=== PATIENT | female | born 1970 | race Caucasian/White ===

== ENCOUNTER 2016-11-09 05:38 | Day surgery (SDC) | payer OTHER, SELFPAY ==
[~2016-11-09 05:38] MED LIST: ADVIL200 M1 PO; CELEXA20 M2 PO; CLARITIN10 M1 PO; MOBIC7.5 M2 PO; MULTIVITAMIN1 TAB PO; PERCOCET 5/3251 TAB PO; PROAIR HFA8.5 GM INH; TYLENOL EXTRA500 M1 PO; TYLENOL TA325 MG/TA2 PO; VENTOLIN HFA18 GM IH
[2016-11-10] MEDS ORDERED: PERCOCET 5-3251 EACH PO (00:40)
== END 2016-11-10 09:35 ==
LOC: WSU 05:38 → SHSB 05:41 → ORW 07:44 → PACU 09:16 → SHSB 09:54 → OBGE 16:50
PROC: 0TSD0ZZ Reposition Urethra, Open Approach (ICD-10-PCS; principal; 2016-11-09)
PROC: 0JQC0ZZ Repair Pelvic Region Subcutaneous Tissue and Fascia, Open Approach (ICD-10-PCS; 2016-11-09)
DX: N81.10 Cystocele, unspecified (principal); N39.3 Stress incontinence (female) (male); N36.8 Other specified disorders of urethra; N89.4 Leukoplakia of vagina; J45.909 Unspecified asthma, uncomplicated; Z79.1 Long term (current) use of non-steroidal anti-inflammatories (NSAID); Z79.899 Other long term (current) drug therapy; Z90.710 Acquired absence of both cervix and uterus; Z90.89 Acquired absence of other organs; Z98.890 Other specified postprocedural states
CPT/HCPCS: C1771; J0690; J2175; J2270; J2405; J2550; J3010; J7030; J7121